=== PATIENT | male | born 1960 | race Caucasian/White ===

== ENCOUNTER 2019-02-19 05:10 | Inpatient (IN) | payer OTHER ==
[~2019-02-19] VITALS: Ht 167.6 cm; Wt 63.8 kg
[2019-02-19] VITALS (14 sets, daily range): BP systolic 97–154; BP diastolic 61–86
[2019-02-19] MEDS ORDERED: METOCLOPRAMIDE INJ 10 MG/2 ML (REGLAN) IVP STA (05:23)
[2019-02-19] MEDS ORDERED: NS IV 1000 ML 1,000 ML IV STA (05:23)
[2019-02-19] MEDS ORDERED: PANTOPRAZOLE 40 MG (PROTONIX) VIAL IV STA (05:23)
--- NOTE | 2019-02-19 05:34 | ED GI ---
General Chief Complaint: Abdominal/GI Problems Stated Complaint: DIABETIC CONCERNS Source of Information: Patient (MONSERRAT SANCHEZ MD) History of Present Illness Date Seen by Provider: Feb 19, 2019 Time Seen by Provider: 05:12 Initial Comments 58 yo M presenting with n/v and epigastric pain that started around 1 am this morning. 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 He was just started on Trulicity by his provider Monday with the first dose in the office. He had been doing well until tonight. He had not had much appetite during the day and did not eat or drink much. On the flight he had a cup of coffee and a bag of pretzels. he denies eating otherwise. He has epigastric pain that he rates at an 8 out of 10 and it builds up until he vomits. He has had about 4 episodes of vomiting since 1 am. The emesis is black to brown colored with coffee ground substance in it as well. He denies any dark or tarry stools. He does have a hx of some reflux but denies taking any medicine for it. (MONSERRAT SANCHEZ MD) Allergies and Home Medications Allergies Coded Allergies: No Known Drug Allergies (Verified , 02/19/19) Home Medications Dulaglutide 1.5 Mg/0.5 Ml Pen.injctr, 1.5 MG SQ Fr, (Reported) Ertugliflozin/Metformin 1 Each Tablet, 1 TAB PO BID, (Reported) Levothyroxine Sodium 50 Mcg Tablet, 50 MCG PO DAILY, (Reported) Lisinopril 10 Mg Tablet, 10 MG PO DAILY, (Reported) Rosuvastatin Calcium 10 Mg Tablet, 10 MG PO DAILY, (Reported) Patient Home Medication List Home Medication List Reviewed: Yes (MONSERRAT SANCHEZ MD) Review of Systems Review of Systems Constitutional: No dizziness, No fever EENTM: No Symptoms Reported Respiratory: No Symptoms Reported Cardiovascular: No Symptoms Reported Gastrointestinal: See HPI, Abdominal Pain (epigastric pain); Denies Diarrhea, Denies Difficulty Swallowing; Nausea (since 1 am), Poor Appetite (today); Denies Rectal Bleeding; Vomiting (since 1 am) Genitourinary: No Symptoms Reported Musculoskeletal: no symptoms reported Skin: no symptoms reported Psychiatric/Neurological: No Symptoms Reported Endocrine: No Symptoms Reported (MONSERRAT SANCHEZ MD) Past Hxqfscd-Jdrmxq-Myezxi Hx Past Med/Social Hx: Reviewed Nursing Past Med/Soc Hx (MONSERRAT SANCHEZ MD) Past Medical History Surgeries: No Respiratory: No Cardiac: No Neurological: No Genitourinary: No Gastrointestinal: Yes Gastroesophageal Reflux Endocrine: Yes Diabetes, Non-Insulin dep (MONSERRAT SANCHEZ MD) Physical Exam Vital Signs Vital Signs - First Documented 02/19/19 05:11 Temp 96.7 Pulse 119 Resp 18 B/P (MAP) 163/80 (107) Pulse Ox 99 O2 Delivery Room Air (MIKE BENITO MD) Vital Signs Capillary Refill : (MONSERRAT SANCHEZ MD) Height/Weight/BMI Height: '" Weight: lbs. oz. kg; BMI Method: General Appearance: WD/WN, mild distress, thin HEENT: PERRL/EOMI, pharynx normal Neck: non-tender, full range of motion, supple, normal inspection Respiratory: chest non-tender, lungs clear, normal breath sounds, no respiratory distress, no accessory muscle use Cardiovascular: normal peripheral pulses, tachycardia Gastrointestinal: normal bowel sounds, soft, no pulsatile mass, guarding (epigastric tenderness), tenderness (epigastric) Rectal: deferred (pt denies dark or tarry stools) Extremities: normal range of motion, non-tender, normal inspection, no pedal edema, no calf tenderness, normal capillary refill 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, no motor/sensory deficits, alert, oriented x 3 Skin: normal color, warm/dry (MONSERRAT SANCHEZ MD) Focused Exam Lactate Level 02/19/19 07:25: Lactic Acid Level 1.84 (MIKE BENITO MD) Lactic Acid Level Laboratory Tests Test 02/19/19 07:25 Lactic Acid Level 1.84 MMOL/L (0.50-2.00) (MIKE BENITO MD) Progress/Results/Core Measures Results/Orders Lab Results Laboratory Tests Test 02/19/19 05:22 02/19/19 05:40 02/19/19 07:17 02/19/19 07:25 Range/Units White Blood Count 14.1 H 4.3-11.0 10^3/uL Red Blood Count 4.57 4.35-5.85 10^6/uL Hemoglobin 13.8 13.3-17.7 G/DL Hematocrit 41 40-54 % Mean Corpuscular Volume 89 80-99 FL Mean Corpuscular Hemoglobin 30 25-34 PG Mean Corpuscular Hemoglobin Concent 34 32-36 G/DL Red Cell Distribution Width 11.8 10.0-14.5 % Platelet Count 277 130-400 10^3/uL Mean Platelet Volume 10.1 7.4-10.4 FL Neutrophils (%) (Auto) 87 H 42-75 % Lymphocytes (%) (Auto) 9 L 12-44 % Monocytes (%) (Auto) 3 0-12 % Eosinophils (%) (Auto) 0 0-10 % Basophils (%) (Auto) 0 0-10 % Neutrophils # (Auto) 12.3 H 1.8-7.8 X 10^3 Lymphocytes # (Auto) 1.2 1.0-4.0 X 10^3 Monocytes # (Auto) 0.4 0.0-1.0 X 10^3 Eosinophils # (Auto) 0.0 0.0-0.3 10^3/uL Basophils # (Auto) 0.1 0.0-0.1 10^3/uL Neutrophils % (Manual) 86 % Lymphocytes % (Manual) 7 % Monocytes % (Manual) 3 % Eosinophils % (Manual) 0 % Basophils % (Manual) 1 % Band Neutrophils 3 % Sodium Level 133 L 135-145 MMOL/L Potassium Level 5.1 H 3.6-5.0 MMOL/L Chloride Level 88 L 98-107 MMOL/L Carbon Dioxide Level 10 L 21-32 MMOL/L Anion Gap 35 H 5-14 MMOL/L Blood Urea Nitrogen 29 H 7-18 MG/DL Creatinine 0.98 0.60-1.30 MG/DL Estimat Glomerular Filtration Rate > 60 BUN/Creatinine Ratio 30 Glucose Level 201 H 70-105 MG/DL Calcium Level 10.1 8.5-10.1 MG/DL Corrected Calcium 9.7 8.5-10.1 MG/DL Total Bilirubin 0.4 0.1-1.0 MG/DL Aspartate Amino Transf (AST/SGOT) 17 5-34 U/L Alanine Aminotransferase (ALT/SGPT) 12 0-55 U/L Alkaline Phosphatase 72 40-136 U/L Total Protein 7.4 6.4-8.2 GM/DL Albumin 4.5 3.2-4.5 GM/DL Lipase 21 8-78 U/L Salicylates Level < 0.3 L 5.0-20.0 MG/DL Acetaminophen Level < 10 L 10-30 UG/ML Serum Alcohol < 10 <10 MG/DL Gastric Fluid Occult Blood POSITIVE H NEGATIVE Urine Color YELLOW Urine Clarity CLEAR Urine pH 5.5 5-9 Urine Specific [place] >=1.030 1.016-1.022 Urine Protein 1+ H NEGATIVE Urine Glucose (UA) 2+ H NEGATIVE Urine Ketones 3+ H NEGATIVE Urine Nitrite NEGATIVE NEGATIVE Urine Bilirubin NEGATIVE NEGATIVE Urine Urobilinogen 0.2 NORMAL MG/DL Urine Leukocyte Esterase NEGATIVE NEGATIVE Urine RBC (Auto) NEGATIVE NEGATIVE Urine RBC 0-2 /HPF Urine WBC RARE /HPF Urine Squamous Epithelial Cells 0-2 /HPF Urine Crystals NONE /LPF Urine Bacteria NEGATIVE /HPF Urine Casts NONE /LPF Urine Mucus NEGATIVE /LPF Urine Culture Indicated NO Lactic Acid Level 1.84 0.50-2.00 MMOL/L Test 02/19/19 07:45 Range/Units Blood Gas Puncture Site LEFT RADIAL Blood Gas Patient Temperature 96.9 Arterial Blood pH 7.17 *L 7.37-7.43 Arterial Blood Partial Pressure CO2 21 L 35-45 MMHG Arterial Blood Partial Pressure O2 99 H 79-93 MMHG Arterial Blood HCO3 8 *L 23-27 MMOL/L Arterial Blood Total CO2 8.3 L 21.0-31.0 MMOL/L Arterial Blood Oxygen Saturation 96 94-100 % Arterial Blood Base Excess -19.0 L -2.5-2.5 MMOL/L Moo Test YES-POS Blood Gas Ventilator Setting NO Blood Gas Inspired Oxygen ROOM AIR (MIKE BENITO MD) My Orders Orders - MIKE BENITO MD Occult Blood,Gastric Fluid (02/19/19 05:40) Iohexol Injection (Omnipaque 350 Mg/Ml 1 (02/19/19 06:30) Received Contrast (Hold Metformin- Contr (02/19/19 06:30) Sodium Chloride Flush (Catheter Flush Sy (02/19/19 06:30) Ns (Ivpb) (Sodium Chloride 0.9% Ivpb Bag (02/19/19 06:30) Ondansetron Injection (Zofran Injectio (02/19/19 06:15) Ondansetron Injection (Zofran Injectio (02/19/19 06:22) Lactic Acid Analyzer (02/19/19 06:43) Alcohol (02/19/19 06:43) Acetaminophen (02/19/19 06:50) Salicylate (02/19/19 06:50) Ns Iv 1000 Ml (Sodium Chloride 0.9%) (02/19/19 07:00) Beta Hydroxybutyrate (02/19/19 07:14) Arterial Blood Gas (02/19/19 07:15) Fentanyl Injection (Sublimaze Injection (02/19/19 07:30) Urinalysis (02/19/19 07:17) Ekg Tracing (02/19/19 07:35) Chest 1 View Ap/Pa Only (02/19/19 07:35) Fentanyl Injection (Sublimaze Injection (02/19/19 08:15) Ns Iv 1000 Ml (Sodium Chloride 0.9%) (02/19/19 08:15) Fomepizole Injection (Antizol Injection) (02/19/19 08:45) (MIKE BENITO MD) Medications Given in ED Current Medications Medications Dose Ordered Sig/Michael Route Start Time Stop Time Status Last Admin Dose Admin Fentanyl Citrate 25 mcg ONCE ONCE IVP 02/19/19 07:30 02/19/19 07:31 DC 02/19/19 07:29 25 MCG Fentanyl Citrate 50 mcg ONCE ONCE IVP 02/19/19 08:15 02/19/19 08:16 DC 02/19/19 08:17 50 MCG Iohexol 50 ml ONCE ONCE IV 02/19/19 06:30 02/19/19 06:31 DC 02/19/19 06:50 100 ML Ondansetron HCl 4 mg ONCE ONCE IVP 02/19/19 06:15 02/19/19 06:28 DC 02/19/19 06:26 4 MG Sodium Chloride 10 ml NEEDED PRN IV 02/19/19 06:30 02/19/19 06:51 10 ML Sodium Chloride 100 ml ONCE ONCE IV 02/19/19 06:30 02/19/19 06:31 DC 02/19/19 06:51 100 ML (MIKE BENITO MD) Vital Signs/I&O 02/19/19 02/19/19 05:11 07:10 Temp 96.7 Pulse 119 122 125 124 Resp 18 B/P (MAP) 163/80 (107) 154/70 (98) 151/75 (100) 149/84 (105) Pulse Ox 99 O2 Delivery Room Air (MIKE BENITO MD) Progress Progress Note : Progress Note Obtain labs and gastroccult the emesis that is dark colored and appears to have coffee grounds in it. Give IVF for hydration and his tachycardia. Check Orthostatic vital signs. Give Protonix for possible gastritis vs PUD and for his epigastric pain. Give Reglan to try and help with his nausea and epigastric pain. 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 With his labs will check for pancreatitis as well as basic electrolytes, LFTs and blood count with UA. Will obtain a CT scan of his abdomen/pelvis as well to evaluate his epigastric pain and n/v. This may all be due to his new medicine the Trulicity but it could be gastritis or peptic ulcer disease or pancreatitis or cholecystitis or colitis. (MONSERRAT SANCHEZ MD) Progress Note : Time: 06:31 Progress Note 02-19 06:30 Dr. Benito all above appreciated 58 yo male started feeling bad yest afternoon, then epigastric pain and coffee ground emesis ~01:00, had 5 episodes, no syncope, no dark stools initially pt said he had no definite GI hx or prior such episodes, but later describes episode 4 yrs ago, sounds like upper endo showed esophagitis then, no Rx Hb 13.8 WBC 14,000 gastroccult +, pt still tachycardic, nearing completion of 1 liter NS IV, will check orthostats, remainder of labs and CT pending UGI bleed, possibly PUD seems most likely chemistries CO2 only 10 anion gap 35 high anion gap acidosis pt denies recent etoh or any kind of toxic ingestion labs added etoh, lactate, serum ketones, ASA and tylenol levels will continue aggressive IV fluids BUN 29 creat 0.[address] ahead with CT CT reveals marked thickening of distal esophagus, neoplasm vs severe esophagitis abd normal lactate normal etoh ASA and tylenol 0 pt has persistent tachycardia though no orthostatic changes ABG pH 7.17 serum ketones sent out EKG sinus tach no acute change CXR appears normal so.......... esophagitis with hematemesis and high anion gap metabolic a cidosis (possibly trulicity related?)) discussed with hospitalist at [place] who accepts pt in transfer full admit inpatient ICU Dr. Doyle inquires re: fomepizole it is available here, initial 1gram (15mg/kg) IV dose ordered (MIKE BENITO MD) Initial ECG Impression Date: Feb 19, 2019 Initial ECG Impression Time: 08:19 Initial ECG Rhythm: S.Tach Initial ECG Impression: Normal (MIKE BENITO MD) Diagnostic Imaging Diagonstic Imaging: CT Plain Films/CT/US/NM/MRI: abdomen, pelvis (MONSERRAT SANCHEZ MD) Transfer of Care Time: 06:00 Care transferred to: Dr. Benito for review of results and further eval of pt, final disposition (MONSERRAT SANCHEZ MD) Departure Impression Primary Impression: Metabolic acidosis, increased anion gap Additional Impressions: Esophagitis Hematemesis Qualified Codes: K92.0 - Hematemesis Disposition: 09 ADMITTED INPATIENT Condition: Stable Admissions Decision to Admit Reason: Admit from ER (General) Decision to Admit/Date: Feb 19, 2019 Time/Decision to Admit Time: 08:23 (MIKE BENITO MD) Transfer Time Spoke to Accepting Phy: 08:24 Transfer Progress Notes pt stable tachycardic but BP's good no further vomiting getting aggressive IV fluids for acidosis Transfer Facility: [place] [facility] ICU Method of Transfer: EMS (MIKE BENITO MD) Departure-Patient Inst. Referrals: NO,LOCAL PHYSICIAN (PCP) Primary Care Physician MONSERRAT SANCHEZ MD Feb 19, 2019 05:34 MIKE BENITO MD Feb 19, 2019 06:37
[2019-02-19 06:03] LABS: HEMATOCRIT 41 % (40-54); HEMOGLOBIN 13.8 G/DL (13.3-17.7); MEAN CORPUSCULAR HEMOGLOBIN 30 PG (25-34); WHITE BLOOD COUNT 14.1 10^3/uL (4.3-11.0)
[2019-02-19 06:04] LABS: MEAN CORPUSCULAR HGB CONC 34 G/DL (32-36); MEAN CORPUSCULAR VOLUME 89 FL (80-99); MEAN PLATELET VOLUME 10.1 FL (7.4-10.4); NEUTROPHILS % (AUTO) 87 % (42-75); PLATELET COUNT 277 10^3/uL (130-400); RED CELL DISTRIBUTION WIDTH 11.8 % (10.0-14.5)
[2019-02-19 06:05] LABS: BASOPHILS # (AUTO) 0.1 10^3/uL (0.0-0.1); BASOPHILS % (AUTO) 0 % (0-10); EOSINOPHILS % (AUTO) 0 % (0-10); LYMPHOCYTES # (AUTO) 1.2 X 10^3 (1.0-4.0); LYMPHOCYTES % (AUTO) 9 % (12-44); MONOCYTES # (AUTO) 0.4 X 10^3 (0.0-1.0); MONOCYTES % (AUTO) 3 % (0-12); NEUTROPHILS # (AUTO) 12.3 X 10^3 (1.8-7.8)
[2019-02-19] MEDS ORDERED: ONDANSETRON 4 MG/2 ML (SDV) Z0FRAN IVP ONE (06:15)
[2019-02-19 06:19] LABS: CHLORIDE 88 MMOL/L (98-107); POTASSIUM 5.1 MMOL/L (3.6-5.0); SODIUM 133 MMOL/L (135-145)
[2019-02-19 06:20] LABS: ALANINE AMINOTRANSFERASE 12 U/L (0-55); ALBUMIN 4.5 GM/DL (3.2-4.5); ALKALINE PHOSPHATASE 72 U/L (40-136); BILIRUBIN,TOTAL 0.4 MG/DL (0.1-1.0); BUN/CREATININE RATIO 30; CALCIUM 10.1 MG/DL (8.5-10.1); CARBON DIOXIDE 10 MMOL/L (21-32); CREATININE SERUM 0.98 MG/DL (0.60-1.30); GFR ESTIMATED > 60; GLUCOSE 201 MG/DL (70-105); TOTAL PROTEIN 7.4 GM/DL (6.4-8.2)
[2019-02-19 06:21] LABS: LIPASE 21 U/L (8-78)
[2019-02-19] MEDS ORDERED: ONDANSETRON 4 MG/2 ML (SDV) Z0FRAN ONE (06:22)
[2019-02-19] MEDS ORDERED: HOLD METFORMIN - RECEIVED CONTRAST 20 ML VIAL IV SCH (06:30)
[2019-02-19] MEDS ORDERED: NS 100 ML (IVPB) BAG IV ONE (06:30)
[2019-02-19] MEDS ORDERED: IOHEXOL 350 MG/ML 100 ML (OMNIPAQUE 350) VIAL IV ONE (06:30)
[2019-02-19] MEDS ORDERED: CATHETER FLUSH 10 ML SYR IV PRN (06:30)
[2019-02-19 06:32] LABS: BAND NEUTROPHILS 3 %; BASOPHILS % (MANUAL) 1 %; EOSINOPHILS % (MANUAL) 0 %; LYMPHOCYTES % (MANUAL) 7 %; MONOCYTES % (MANUAL) 3 %; NEUTROPHILS % (MANUAL) 86 %
[2019-02-19 07:00] LABS: OCCULT BLOOD,GASTRIC FLUID POSITIVE (NEGATIVE)
[2019-02-19] MEDS ORDERED: NS IV 1000 ML 1,000 ML IV SCH ×3 (07:00→11:27)
--- NOTE | 2019-02-19 07:01 | NUR ---
REPORT GIVEN TO DAYLIN FARAH
[2019-02-19] MEDS ORDERED: fentaNYL INJECTION 100 MCG/2 ML AMP IVP PRN (07:15)
[2019-02-19 07:19] LABS: ACETAMINOPHEN < 10 UG/ML (10-30); SALICYLATE < 0.3 MG/DL (5.0-20.0)
--- NOTE | 2019-02-19 07:24 | Diagnostic Imaging Report ---
PROCEDURE: CT abdomen and pelvis with contrast. TECHNIQUE: Multiple contiguous axial images were obtained through the abdomen and pelvis after administration of intravenous contrast. Auto Exposure Controls were utilized during the CT exam to meet ALARA standards for radiation dose reduction. INDICATION: Nausea, vomiting, and abdominal pain. FINDINGS: No comparison available. There is significant thickening of the distal esophagus, incompletely evaluated. Differential is a neoplasm versus severe esophagitis. There is some focal fat at the falciform ligament. No suspicious liver lesions. Gallbladder is normal. No biliary ductal dilation. Portal vein is patent. Pancreas, spleen and adrenal glands are normal. Kidneys enhance symmetrically without focal lesion. No hydronephrosis. Urinary bladder is significantly distended. Prostate is normal. No dilated loops of large or small bowel. No bowel obstruction or inflammation. The appendix is normal. There is no abdominal or pelvic lymphadenopathy. No free fluid or air. Abdominal aorta is normal in caliber. There are no suspicious osseous lesions. IMPRESSION: 1. Severe thickening of the distal esophagus. The differential is neoplasm or severe esophagitis. 2. No acute intraabdominal abnormality. Dictated by: Dictated on workstation # [id number]
[2019-02-19] MEDS ORDERED: fentaNYL INJECTION 100 MCG/2 ML AMP IVP ONE ×2 (07:30→08:15)
[2019-02-19 07:40] LABS: CLARITY,URINE CLEAR; COLOR,URINE YELLOW; GLUCOSE, URINE (UA) 2+ (NEGATIVE); KETONES,URINE 3+ (NEGATIVE); PH,URINE 5.5 (5-9); PROTEIN,URINE 1+ (NEGATIVE)
[2019-02-19 07:41] LABS: BACTERIA,URINE NEGATIVE /HPF; BILIRUBIN,URINE NEGATIVE (NEGATIVE); LEUKOCYTE ESTERASE ,URINE NEGATIVE (NEGATIVE); NITRITE,URINE NEGATIVE (NEGATIVE); RBC,URINE 0-2 /HPF; SQUAMOUS EPITHELIAL CELL,UR 0-2 /HPF; UROBILINOGEN,URINE 0.2 MG/DL (NORMAL); WBC,URINE RARE /HPF
[2019-02-19 07:56] LABS: ABG PCO2 21 MMHG (35-45); ABG PO2 99 MMHG (79-93)
[2019-02-19 07:57] LABS: ABG OXYGEN SATURATION 96 % (94-100); ALLENS TEST YES-POS; INSPIRED O2 ROOM AIR; PATIENT TEMP 96.9; VENTILATOR NO
[2019-02-19 07:58] LABS: ABG TCO2 8.3 MMOL/L (21.0-31.0)
[2019-02-19 08:02] LABS: ABG PH 7.17 (7.37-7.43)
--- NOTE | 2019-02-19 08:31 | Diagnostic Imaging Report ---
INDICATION: Nausea, vomiting, and pain COMPARISON: None available. TECHNIQUE: Single radiograph of the chest dated 02/19/2019 FINDINGS: The cardiac silhouette and pulmonary vasculature are within normal limits. The lungs are clear. No pleural effusion. No pneumothorax. No acute osseous abnormality. IMPRESSION: No acute cardiopulmonary abnormality. Dictated by: Dictated on workstation # [id number]
[2019-02-19] MEDS ORDERED: NS IV ONE (08:45)
[2019-02-19] MEDS ORDERED: FOMEPIZOLE IV ONE (08:45)
[2019-02-19] MEDS ORDERED: NS IV 1000 ML 1,000 ML IV ONE (09:05)
[2019-02-19] MEDS ORDERED: PROMETHAZINE INJ 25 MG/ML (PHENERGAN) AMP ONE (09:14)
[2019-02-19] MEDS ORDERED: PROMETHAZINE INJ 25 MG/ML (PHENERGAN) AMP IM ONE (09:30)
[2019-02-19] MEDS ORDERED: LEVO50TA6 PO (10:50)
[2019-02-19] MEDS ORDERED: ROSU10TA28 PO (10:50)
[2019-02-19] MEDS ORDERED: LISI10TA2 PO (10:50)
[2019-02-19 11:15] LABS: BASOPHILS % (AUTO) 0 % (0-10); EOSINOPHILS % (AUTO) 0 % (0-10); HEMATOCRIT 39 % (40-54); HEMOGLOBIN 13.3 G/DL (13.3-17.7); LYMPHOCYTES % (AUTO) 5 % (12-44); MEAN CORPUSCULAR HEMOGLOBIN 30 PG (25-34); MEAN CORPUSCULAR HGB CONC 34 G/DL (32-36); MEAN CORPUSCULAR VOLUME 88 FL (80-99); MEAN PLATELET VOLUME 9.9 FL (7.4-10.4); MONOCYTES # (AUTO) 0.7 X 10^3 (0.0-1.0); MONOCYTES % (AUTO) 4 % (0-12); NEUTROPHILS # (AUTO) 16.4 X 10^3 (1.8-7.8); NEUTROPHILS % (AUTO) 91 % (42-75); PLATELET COUNT 275 10^3/uL (130-400); RED CELL DISTRIBUTION WIDTH 12.2 % (10.0-14.5); WHITE BLOOD COUNT 18.1 10^3/uL (4.3-11.0)
[2019-02-19] MEDS ORDERED: PANTOPRAZOLE 40 MG (PROTONIX) VIAL IV ONE (11:15)
[2019-02-19] MEDS ORDERED: ERTU1TAB11 PO (11:19)
[2019-02-19] MEDS ORDERED: DULA0.75 SQ (11:20)
--- NOTE | 2019-02-19 11:20 | History & Physical-Hospitalist ---
History of Present Illness HPI/Chief Complaint Pt is a 58yoCM with a PMH of NIDDMII and HTN who presented to the ER with a CC of abdominal pain, nausea, and vomiting. He states his symptoms started yesterday. He flew from [place] to [place] to get a truck and on the way back he developed vomiting. His PCP told him to expect that from his Trulicity and had given him Zofran which he took and that helped. Shortly afterwards though his nausea returned and he has vomited multiple times since then causing him to seek evaluation in the ER. His vomit had a dark coffee ground appearance. He was found to have as severe metabolic acidosis on evaluation with high anion gap and admitted for further evaluation. He reported he also takes Segluromet for his diabetes but not insulin. He denies any ingestion of toxic alcohol or any unknown substances. Source: patient Exam Limitations: no limitations Date Seen 02/19/19 Time Seen by a Provider: 11:11 Attending Physician Tessa Doyle MD PCP No,Local Physician Referring Physician Date of Admission Feb 19, 2019 at 8:48 am Home Medications & Allergies Home Medications Reviewed patient Home Medication Reconciliation performed by pharmacy medication reconciliations pool technician and/or nursing. Patients Allergies have been reviewed. Allergies Allergies Coded Allergies No Known Drug Allergies (Verified02/19/19) Past Ezgqobw-Vwsrkz-Qtzcwp Hx Past Med/Social Hx: Reviewed Nursing Past Med/Soc Hx Patient Social History Marrital Status: Employed/Student: employed Alcohol Use: Occasionally Uses Alcohol Beverage of Choice: Beer Recreational Drug Use: No Smoking Status: Never a Smoker Recent Foreign Travel: No Contact w/other who traveled: No Recent Hopitalizations: No Recent Infectious Disease Expo: No Immunizations Up To Date Tetanus Booster (TDap): Less than 5yrs Pediatric: Yes Seasonal Allergies Seasonal Allergies: No Past Medical History Cardiac: High Cholesterol, Hypertension Gastrointestinal: Gastroesophageal Reflux, Esophagitis Endocrine: Diabetes, Non-Insulin dep Are Your Blood Sugars Over 250: No History of Blood Disorders: No Family History Reviewed Nursing Family Hx Patient reports no known family medical history. Heart Disease Review of Systems Constitutional: No chills, No diaphoresis, No fever, No malaise EENTM: no symptoms reported Respiratory: no symptoms reported Cardiovascular: no symptoms reported Gastrointestinal: abdominal pain; No constipation, No diarrhea; hematemesis, heartburn; No melena; nausea, vomiting Genitourinary: No dysuria, No frequency Skin: no symptoms reported Psychiatric/Neurological: No Symptoms Reported Physical Exam Physical Exam Vital Signs Vital Signs - First Documented 02/19/19 05:11 Temp 96.7 Pulse 119 Resp 18 B/P (MAP) 163/80 (107) Pulse Ox 99 O2 Delivery Room Air Capillary Refill : Less Than 3 Seconds Height, Weight, BMI Height: 5'6.00" Weight: 134lbs. oz. 60.491623sm; BMI Method:Stated General Appearance: No Apparent Distress, WD/WN HEENT: Moist Mucous Membranes; No Scleral Icterus (L), No Scleral Icterus (R) Neck: Normal Inspection, Supple; No JVD, No Thyromegaly Respiratory: Lungs Clear, No Accessory Muscle Use, No Respiratory Distress Cardiovascular: No JVD, No Murmur, Irregularly Irregular Gastrointestinal: Normal Bowel Sounds, Non Tender, Soft Extremity: Normal Capillary Refill, Non Tender, No Calf Tenderness Neurologic/Psychiatric: Alert, Oriented x3, Normal Mood/Affect; No Aphasia, No Facial Droop Skin: Normal Color, Warm/Dry Results Results/Procedures Labs Laboratory Tests 02/19/19 05:22 02/19/19 09:20 02/19/19 10:29 02/19/19 13:40 02/19/19 20:35 02/20/19 03:15 Patient resulted labs reviewed. Imaging: Reviewed Imaging Report Assessment/Plan Admission Diagnosis Euglycemic DKA Admission Status: Inpatient Order (span 2 midnights) Reason for Inpatient Admission: ICU admission, work up for HAGMA Assessment and Plan HAGMA Likely euglycemic DKA due to ertuglifozin Toxic alcohol work up pending due to gap of 35 Received Fomepizole in ER If labs not improved with insulin will continue Pulm/CC consulted, appreciate recs NIDDMII A1c Hold home meds Continue insulin gtt as above HTN Well controlled trend Abd pain UGI Bleed Esophagitis Surgery consulted, plan for EGD today Hgb stable NPO SCDs- hold lovenox for hematemesis IVF: per protocol Diagnosis/Problems Diagnosis/Problems (1) Diabetic ketoacidosis without coma associated with type 2 diabetes mellitus Status: Acute (2) Metabolic acidosis, increased anion gap Status: Acute (3) Esophagitis Status: Acute (4) Hematemesis Status: Acute Qualifiers: Nausea presence: with nausea Qualified Codes: K92.0 - Hematemesis (5) Nausea and vomiting Status: Acute Qualifiers: Vomiting type: unspecified Vomiting Intractability: non-intractable Qualified Codes: R11.2 - Nausea with vomiting, unspecified Clinical Quality Measures DVT/VTE Risk/Contraindication: Risk Factor Score Per Nursin RFS Level Per Nursing on Admit: 2=Moderate TESSA DOYLE MD Feb 19, 2019 11:20
[2019-02-19] MEDS ORDERED: DULA1.5P2 SQ (11:21)
[2019-02-19 11:25] LABS: CALCIUM 10.1 MG/DL (8.5-10.1); CREATININE SERUM 1.37 MG/DL (0.60-1.30); POTASSIUM 5.1 MMOL/L (3.6-5.0)
[2019-02-19] MEDS ORDERED: inSUlin REGULAR TPN/DRIP ONLY 250 UNITS in NORMAL SALINE 250 ML IV SCH (11:30)
[2019-02-19 12:06] LABS: EOSINOPHILS % (MANUAL) 1 %; LYMPHOCYTES % (MANUAL) 10 %; MONOCYTES % (MANUAL) 3 %; NEUTROPHILS % (MANUAL) 86 %; RBC MORPH NORMAL
[2019-02-19] MEDS: NS IV 1000 ML 1,000 ML IV SCH ×4 (12:25→21:50)
[2019-02-19] MEDS: D5 1/2 NS 1000 ML IV SOLUTION 1,000 ML IV SCH ×3 (12:26→20:16)
[2019-02-19] MEDS: POTASSIUM CL 10MEQ/50ML IVPB 50 ML IV SCH ×7 (12:26→22:27)
[2019-02-19] MEDS: 1/2 NS IV SOLUTION 1,000 ML IV SCH ×4 (12:27→23:45)
[2019-02-19 12:40] LABS: ABG BASE EXCESS -19.8 MMOL/L (-2.5-2.5); ABG OXYGEN SATURATION 98 % (94-100); ABG PCO2 20 MMHG (35-45); ABG PO2 105 MMHG (79-93); ABG TCO2 7.8 MMOL/L (21.0-31.0)
[2019-02-19 12:42] LABS: ABG PH 7.18 (7.37-7.43)
[2019-02-19 12:43] LABS: ALLENS TEST YES-POS; INSPIRED O2 ROOM AIR; PATIENT TEMP 98.1; VENTILATOR NO
--- NOTE | 2019-02-19 13:23 | Consultation - Surgery ---
History of Present Illness History of Present Illness Patient Consulted On(rashaad/time) 02/19/19 13:18 Time Seen by Provider: 12:51 History of Present Illness Surgery asked to consult regarding abdominal pain, N/V, coffee ground emesis and thickened Esophagus seen on CT. HPI per ED: 58 yo M presenting with n/v and epigastric pain that started around 1 am this morning. 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 He was just started on Trulicity by his provider Monday with the first dose in the office. He had been doing well until tonight. He had not had much appetite during the day and did not eat or drink much. On the flight he had a cup of coffee and a bag of pretzels. he denies eating otherwise. He has epigastric pain that he rates at an 8 out of 10 and it builds up until he vomits. He has had about 4 episodes of vomiting since 1 am. The emesis is black to brown colored with coffee ground substance in it as well. He denies any dark or tarry stools. He does have a hx of some reflux but denies taking any medicine for it. When I spoke to pt today he states he has never had pain this bad before, nor has he had this bad of N/V. He reports he had a EGD about four years ago for "acid reflux, but they didn't find much". He has never vomited up blood before. Allergies and Home Medications Allergies Coded Allergies: No Known Drug Allergies (Unverified , 02/19/19) Home Medications Dulaglutide 1.5 Mg/0.5 Ml Pen.injctr, 1.5 MG SQ Fr, (Reported) Ertugliflozin/Metformin 1 Each Tablet, 1 TAB PO BID, (Reported) Levothyroxine Sodium 50 Mcg Tablet, 50 MCG PO DAILY, (Reported) Lisinopril 10 Mg Tablet, 10 MG PO DAILY, (Reported) Rosuvastatin Calcium 10 Mg Tablet, 10 MG PO DAILY, (Reported) Patient Home Medication List Home Medication List Reviewed: Yes Past Zxkafkr-Rysnqk-Nxrmnj Hx Patient Social History Alcohol Use: Occasionally Uses Recreational Drug Use: No Smoking Status: Never a Smoker Recent Foreign Travel: No Contact w/Someone Who Travel: No Recent Infectious Disease Expo: No Recent Hopitalizations: No Immunizations Up To Date Tetanus Booster (TDap): Less than 5yrs PED Vaccines UTD: Yes Seasonal Allergies Seasonal Allergies: No Surgeries History of Surgeries: No Respiratory History of Respiratory Disorde: No Cardiovascular History of Cardiac Disorders: No Cardiac Disorders: High Cholesterol, Hypertension Neurological History of Neurological Disord: No Genitourinary History of Genitourinary Disor: No Gastrointestinal History of Gastrointestinal Di: Yes Gastrointestinal Disorders: Gastroesophageal Reflux Musculoskeletal History of Musculoskeletal Dis: No Endocrine History of Endocrine Disorders: Yes Endocrine Disorders: Diabetes, Non-Insulin dep HEENT History of HEENT Disorders: No Cancer History of Cancer: No Psychosocial History of Psychiatric Problem: No Integumentary History of Skin or Integumenta: No Blood Transfusions History of Blood Disorders: No Family Medical History Significant Family History: CAD Under 55 Years Old (Father), Diabetes (grandmother) Family Medial History: Patient reports no known family medical history. Review of Systems-General Constitutional: dizziness, malaise, weakness EENTM: No blurred vision, No double vision, No mouth pain, No mouth swelling, No epistaxis, No throat swelling Respiratory: No hemoptysis, No short of breath Cardiovascular: No chest pain, No edema, No palpitations Gastrointestinal: abdominal pain, hematemesis; No jaundice, No melena; nausea, vomiting Genitourinary: No dysuria, No frequency, No hematuria Musculoskeletal: No joint pain, No joint swelling, No muscle pain, No muscle stiffness Skin: No change in color, No change in hair/nails Psychiatric/Neurological: Denies Anxiety, Denies Depressed, Denies Seizure, Denies Tremors Other Pt denies any hx of abnormal bleeding or bruising Physical Exam-General Problems Physical Exam Vital Signs Vital Signs - First Documented 02/19/19 05:11 Temp 96.7 Pulse 119 Resp 18 B/P (MAP) 163/80 (107) Pulse Ox 99 O2 Delivery Room Air Capillary Refill : Less Than 3 Seconds General Appearance: WD/WN, mild distress Eyes: Bilateral Eye PERRL, Bilateral Eye EOMI HEENT: pharynx normal; No scleral icterus (R), No scleral icterus (L) Neck: non-tender, full range of motion, supple Respiratory: chest non-tender, lungs clear, normal breath sounds, no respiratory distress, no accessory muscle use Cardiovascular: regular rate, rhythm, no edema, no murmur Gastrointestinal: normal bowel sounds, soft, no organomegaly, no pulsatile mass, tenderness (epigastric/sub-xiphoid), hernia (umbilical incarcerated) Back: no CVA tenderness, no vertebral tenderness Extremities: normal range of motion, non-tender, normal inspection, no pedal edema, no calf tenderness Neurologic/Psychiatric: card reader II-XII nml as tested, no motor/sensory deficits, al ert, normal mood/affect, oriented x 3 Skin: normal color, cyanosis Lymphatic: no adenopathy (neck, axilla or groin) Data Review Labs Laboratory Tests 02/19/19 05:22: White Blood Count 14.1H, Red Blood Count 4.57, Hemoglobin 13.8, Hematocrit 41, Mean Corpuscular Volume 89, Mean Corpuscular Hemoglobin 30, Mean Corpuscular Hemoglobin Concent 34, Red Cell Distribution Width 11.8, Platelet Count 277, Mean Platelet Volume 10.1, Neutrophils (%) (Auto) 87H, Lymphocytes (%) (Auto) 9L , Monocytes (%) (Auto) 3, Eosinophils (%) (Auto) 0, Basophils (%) (Auto) 0, Neutrophils # (Auto) 12.3H, Lymphocytes # (Auto) 1.2, Monocytes # (Auto) 0.4, Eosinophils # (Auto) 0.0, Basophils # (Auto) 0.1, Neutrophils % (Manual) 86, Lymphocytes % (Manual) 7, Monocytes % (Manual) 3, Eosinophils % (Manual) 0, Basophils % (Manual) 1, Band Neutrophils 3, Sodium Level 133L, Potassium Level 5.1H, Chloride Level 88L, Carbon Dioxide Level 10L, Anion Gap 35H, Blood Urea Nitrogen 29H, Creatinine 0.98, Estimat Glomerular Filtration Rate > 60, BUN/Creatinine Ratio 30, Glucose Level 201H, Calcium Level 10.1, Corrected Calcium 9.7, Total Bilirubin 0.4, Aspartate Amino Transf (AST/SGOT) 17, Alanine Aminotransferase (ALT/SGPT) 12, Alkaline Phosphatase 72, Total Protein 7.4, Albumin 4.5, Lipase 21, Beta-Hydroxybutyrate (Chem panel) 10.84H, Salicylates Level < 0.3L, Acetaminophen Level < 10L, Serum Alcohol < 10 02/19/19 05:40: Gastric Fluid Occult Blood POSITIVEH 02/19/19 07:17: Urine Color YELLOW, Urine Clarity CLEAR, Urine pH 5.5, Urine Specific [place] >=1.030, Urine Protein 1+H, Urine Glucose (UA) 2+H, Urine Ketones 3+H, Urine Nitrite NEGATIVE, Urine Bilirubin NEGATIVE, Urine Urobilinogen 0.2, Urine Leukocyte Esterase NEGATIVE, Urine RBC (Auto) NEGATIVE, Urine RBC 0-2, Urine WBC RARE, Urine Squamous Epithelial Cells 0-2, Urine Crystals NONE, Urine Bacteria NEGATIVE, Urine Casts NONE, Urine Mucus NEGATIVE, Urine Culture Indicated NO 02/19/19 07:25: Lactic Acid Level 1.84 02/19/19 07:45: Blood Gas Puncture Site LEFT RADIAL, Blood Gas Patient Temperature 96.9, Arterial Blood pH 7.17*L, Arterial Blood Partial Pressure CO2 21L, Arterial Blood Partial Pressure O2 99H, Arterial Blood HCO3 8*L, Arterial Blood Total CO2 8.3L, Arterial Blood Oxygen Saturation 96, Arterial Blood Base Excess -19.0L, Moo Test YES-POS, Blood Gas Ventilator Setting NO, Blood Gas Inspired Oxygen ROOM AIR 02/19/19 09:20: Sodium Level 135, Potassium Level 5.1H, Chloride Level 98, Carbon Dioxide Level 7*L, Anion Gap 30H, Blood Urea Nitrogen 28H, Creatinine 1.37H, Estimat Glomerular Filtration Rate 53, BUN/Creatinine Ratio 20, Glucose Level 183H, Calcium Level 10.1 02/19/19 10:23: 02/19/19 10:29: White Blood Count 18.1H, Red Blood Count 4.43, Hemoglobin 13.3, Hematocrit 39L, Mean Corpuscular Volume 88, Mean Corpuscular Hemoglobin 30, Mean Corpuscular Hemoglobin Concent 34, Red Cell Distribution Width 12.2, Platelet Count 275, Mean Platelet Volume 9.9, Neutrophils (%) (Auto) 91H, Lymphocytes (%) (Auto) 5L, Monocytes (%) (Auto) 4, Eosinophils (%) (Auto) 0, Basophils (%) (Auto) 0, Neutrophils # (Auto) 16.4H, Lymphocytes # (Auto) 1.0, Monocytes # (Auto) 0.7, Eosinophils # (Auto) 0.0, Basophils # (Auto) 0.0, Neutrophils % (Manual) 86, Lymphocytes % (Manual) 10, Monocytes % (Manual) 3, Eosinophils % (Manual) 1, Blood Morphology Comment NORMAL 02/19/19 11:41: Glucometer 164H 02/19/19 12:34: Blood Gas Puncture Site LT RADIAL, Blood Gas Patient Temperature 98.1, Arterial Blood pH 7.18*L, Arterial Blood Partial Pressure CO2 20L, Arterial Blood Partial Pressure O2 105H, Arterial Blood HCO3 7*L, Arterial Blood Total CO2 7.8L, Arterial Blood Oxygen Saturation 98, Arterial Blood Base Excess -19.8L, Moo Test YES-POS, Blood Gas Ventilator Setting NO, Blood Gas Inspired Oxygen ROOM AIR 02/19/19 13:06: Glucometer 186H Assessment/Plan Assessment/Plan Assessment/Plan Abdominal Pain N/V with Coffee Ground Emesis Esophagitis - read by Radiologist on CT Metabolic Acidosis with High anion Gap DM II - not controlled Plan is NPO, IV fluids, anti-emetics, pain control and he is currently receiving treatment for the acidosis. He needs an EGD to work-up the esophageal thickening; will do that today up in his room in the ICU. Will get consent, discussed the procedure with pt; risks and complications discussed ( not limited to pain, bleeding, infection and even esophageal perforation). All questions answered to his satisfaction. Clinical Quality Measures DVT/VTE Risk/Contraindication: Risk Factor Score Per Nursin RFS Level Per Nursing on Admit: 2=Moderate PATI GE DO Feb 19, 2019 13:23
[2019-02-19] MEDS: ONDANSETRON 4 MG/2 ML (SDV) Z0FRAN IV PRN ×2 (13:24→17:37)
--- NOTE | 2019-02-19 13:35 | Pulmonary Consultation ---
History of Present Illness History of Present Illness Date of Consultation 02/19/19 13:30 Time Seen by Provider: 13:30 Date of Admission History of Present Illness 58yo with hx of DM and just started Trulicity on Monday presented to ED secondary to N/V and epigastric 8/10 pain that started around 1am. Pt has had decreased appetite. While in the ED pt was found to have severe metabolic a cidosis. He was admitted to ICU for close monitoring. No prior episodes like this in the past. I am consulted for ICU management. Allergies and Home Medications Allergies Coded Allergies: No Known Drug Allergies (Verified , 02/19/19) Home Medications Insulin Determir 1,000 Units/10 Ml Soln, 5 UNIT SQ DAILY@0900 Prescribed by: TESSA ORTEGA on 02/21/19 1426 Levothyroxine Sodium 50 Mcg Tablet, 50 MCG PO DAILY, (Reported) Lisinopril 10 Mg Tablet, 10 MG PO DAILY, (Reported) Ondansetron 4 Mg Tab.rapdis, 4 MG PO Q8H Prescribed by: TESSA ORTEGA on 02/21/19 1428 Pantoprazole Sodium 40 Mg Tablet.dr, 40 MG PO DAILY Prescribed by: TESSA ORTEGA on 02/21/19 1426 Rosuvastatin Calcium 10 Mg Tablet, 10 MG PO DAILY, (Reported) Sucralfate 1 Gm Tablet, 1 GM PO ACHS Prescribed by: TESSA ORTEGA on 02/21/19 1425 Past Eqirkps-Xedanl-Udmecs Hx Past Med/Social Hx: Reviewed Nursing Past Med/Soc Hx Patient Social History Alcohol Use: Occasionally Uses Alcohol Beverage of Choice: Beer Recreational Drug Use: No Smoking Status: Never a Smoker Recent Foreign Travel: No Contact w/Someone Who Travel: No Recent Infectious Disease Expo: No Recent Hopitalizations: No Physical Abuse: No Sexual Abuse: No Mistreated: No Fear: No Immunizations Up To Date Tetanus Booster (TDap): Less than 5yrs PED Vaccines UTD: Yes Seasonal Allergies Seasonal Allergies: No Past Medical History Surgeries: No Respiratory: No Cardiac: No High Cholesterol, Hypertension Neurological: No Genitourinary: No Gastrointestinal: Yes Gastroesophageal Reflux Musculoskeletal: No Endocrine: Yes Diabetes, Non-Insulin dep Are Your Blood Sugars Over 250: No HEENT: No Cancer: No Psychosocial: No Integumentary: No Blood Disorders: No Family Medical History Patient reports no known family medical history. Review of Systems Time Seen by Provider: 13:37 Sepsis Event Evaluation Height, Weight, BMI Height: 5'6.00" Weight: 134lbs. oz. 60.955714wg; BMI Method:Stated Exam Exam Vital Signs Date Time Temp Pulse Resp B/P (MAP) Pulse Ox O2 Delivery O2 Flow Rate FiO2 02/19/19 12:00 Room Air 02/19/19 12:00 120 12 107/63 (78) 99 Room Air 02/19/19 11:00 128 18 122/72 (89) 100 Room Air 02/19/19 10:37 Room Air 02/19/19 10:30 122 17 141/76 (97) 98 Room Air 02/19/19 10:19 128 02/19/19 09:31 97.9 122 18 140/63 (88) 96 Room Air 02/19/19 07:10 122 154/70 (98) 125 151/75 (100) 124 149/84 (105) 02/19/19 05:11 96.7 119 18 163/80 (107) 99 Room Air Height & Weight Height: 5'6.00" Weight: 134lbs. oz. 60.938530yo; BMI Method:Stated General Appearance: Anxious, Chronically ill, Mild Distress HEENT: PERRL/EOMI, Pharynx Normal Neck: Full Range of Motion, Non Tender, Supple Respiratory: No Accessory Muscle Use, No Respiratory Distress, Crackles, Decreased Breath Sounds Cardiovascular: Regular Rate, Rhythm, No Edema Capillary Refill: Less Than 3 Seconds Gastrointestinal: normal bowel sounds, soft, no pulsatile mass, guarding ( epigastric tenderness), tenderness (epigastric) Extremity: Normal Capillary Refill, Normal Inspection, No Pedal Edema Neurologic/Psychiatric: Alert Skin: Normal Color, Warm/Dry Lymphatic: No Adenopathy Results Lab Laboratory Tests 02/19/19 05:22 02/19/19 09:20 02/19/19 10:29 Assessment/Plan Assessment/Plan Severe anion gap metabolic acidosis with ketosis -Continue insulin gtt -Continue DKA protocol -IVF Hyperkalemia -Continue insulin gtt Esophagitis Hematemesis BOONE RAMSEY DO Feb 19, 2019 13:35
[2019-02-19 14:13] LABS: BUN/CREATININE RATIO 22; CALCIUM 7.8 MG/DL (8.5-10.1); CHLORIDE 108 MMOL/L (98-107); CREATININE SERUM 1.06 MG/DL (0.60-1.30); GFR ESTIMATED > 60; GLUCOSE 185 MG/DL (70-105); POTASSIUM 4.4 MMOL/L (3.6-5.0); SODIUM 135 MMOL/L (135-145)
[2019-02-19 14:23] LABS: CARBON DIOXIDE 8 MMOL/L (21-32)
[2019-02-19] MEDS ORDERED: MIDAZOLAM 5 MG/5 ML (VERSED) VIAL ONE (15:41)
[2019-02-19] MEDS ORDERED: proPOfol 200 MG/20 ML (DIPRIVAN) VIAL IV ONE ×2 (15:42→16:21)
--- NOTE | 2019-02-19 20:03 | OPERATIVE REPORT ---
DATE OF SERVICE: PREOPERATIVE DIAGNOSES: Coffee ground emesis, esophagitis, nausea and vomiting. POSTOPERATIVE DIAGNOSES: Coffee ground emesis, esophageal ulceration as well as some ulcers at the GE junction and retained food in the stomach. PROCEDURE: EGD with biopsy. SURGEON: Zaid Alonso DO. ELECTROMECHANICAL ASSEMBLY TECHNICIAN: None. ANESTHESIA: IV sedation by the STUDENT TEACHER. SPECIMEN: Biopsy from the GE junction and biopsy of the ulcerations of the esophagus. BLOOD LOSS: Scant. FLUIDS: Per anesthesia. POSTOPERATIVE CONDITION: Stable. INDICATION FOR PROCEDURE: The patient is a 58-year-old male who had abdominal pain and then nausea and vomiting, vomited up some coffee ground emesis. Stated he never had this before, had a CAT scan, which showed thick esophagitis, questionable neoplasm, needed a workup. FINDINGS: The patient had ulcerations in the lower third of the esophagus. The GE junction also looked ulcerated and erythematous and he had a lot of retained food particles and what looked like it may have been bloody in the upper portion of the stomach. Antrum and duodenum looked okay. PROCEDURE NOTE: After informed consent was obtained, the patient in his bed in the ICU, was administered IV sedation by the STUDENT TEACHER who then monitored his vitals the entire time, heart rate, blood pressure and pulse ox. Scope was inserted down the mouth through the esophagus and down the esophagus noted some fluid, started suctioning this up, pushed into the stomach. There was a lot of fluid in the upper portion of the stomach and the body, pushed down towards the antrum, saw a lot of what looked like black either old clot or black in food particles at the antrum, took a picture. Pushed into the duodenum, duodenum looked fine. Pulled back into the GE junction and the distal third of the esophagus, saw some ulcerations. The GE junction had some ulceration as well. Did a biopsy of the GE junction, then pulled back and tried to get a biopsy of the ulcers and esophagus, then tried for about 30 minutes to suction out all the fluid. It was just too much thickened particles and retained food, could not suction it all out. We will have to go back to look at this area again. At this point, then pulled the scope up the esophagus and out the mouth. The patient tolerated the procedure. He was recovered in the ICU bed. Job ID: [id number] DocumentID: [id number] Dictated Date: 02/19/2019 17:15:54 Estate Planner Date: 02/19/2019 20:02:38 Dictated By: ZAID ALONSO DO
[2019-02-19 21:02] LABS: BUN/CREATININE RATIO 17; CARBON DIOXIDE 14 MMOL/L (21-32); CHLORIDE 113 MMOL/L (98-107); CREATININE SERUM 1.06 MG/DL (0.60-1.30); GFR ESTIMATED > 60; GLUCOSE 168 MG/DL (70-105); POTASSIUM 4.1 MMOL/L (3.6-5.0); SODIUM 140 MMOL/L (135-145)
[2019-02-19] MEDS: PANTOPRAZOLE 40 MG (PROTONIX) VIAL IV SCH (21:18)
[2019-02-20] VITALS (21 sets, daily range): BP systolic 108–144; BP diastolic 56–80
[2019-02-20] MEDS: POTASSIUM CL 10MEQ/50ML IVPB 50 ML IV SCH ×5 (00:18→08:42)
[2019-02-20] MEDS: D5 1/2 NS 1000 ML IV SOLUTION 1,000 ML IV SCH ×3 (00:19→08:12)
[2019-02-20] MEDS: NS IV 1000 ML 1,000 ML IV SCH ×2 (02:32→03:51)
[2019-02-20] MEDS: 1/2 NS IV SOLUTION 1,000 ML IV SCH ×4 (02:32→22:31)
[2019-02-20 03:22] LABS: BASOPHILS % (AUTO) 0 % (0-10); EOSINOPHILS % (AUTO) 0 % (0-10); HEMATOCRIT 34 % (40-54); HEMOGLOBIN 11.6 G/DL (13.3-17.7); LYMPHOCYTES # (AUTO) 1.1 X 10^3 (1.0-4.0); LYMPHOCYTES % (AUTO) 8 % (12-44); MEAN CORPUSCULAR HEMOGLOBIN 30 PG (25-34); MEAN CORPUSCULAR HGB CONC 34 G/DL (32-36); MEAN CORPUSCULAR VOLUME 87 FL (80-99); MEAN PLATELET VOLUME 9.2 FL (7.4-10.4); MONOCYTES # (AUTO) 1.4 X 10^3 (0.0-1.0); MONOCYTES % (AUTO) 10 % (0-12); NEUTROPHILS # (AUTO) 11.9 X 10^3 (1.8-7.8); NEUTROPHILS % (AUTO) 83 % (42-75); PLATELET COUNT 253 10^3/uL (130-400); RED CELL DISTRIBUTION WIDTH 12.1 % (10.0-14.5); WHITE BLOOD COUNT 14.3 10^3/uL (4.3-11.0)
[2019-02-20 03:39] LABS: BUN/CREATININE RATIO 15; CALCIUM 7.9 MG/DL (8.5-10.1); CARBON DIOXIDE 17 MMOL/L (21-32); CHLORIDE 116 MMOL/L (98-107); CREATININE SERUM 0.93 MG/DL (0.60-1.30); GFR ESTIMATED > 60; GLUCOSE 142 MG/DL (70-105); PHOSPHORUS 1.7 MG/DL (2.3-4.7); POTASSIUM 3.7 MMOL/L (3.6-5.0); SODIUM 141 MMOL/L (135-145)
[2019-02-20 03:55] LABS: AMPHETAMINE SCREEN, URINE NEGATIVE (NEGATIVE); BARBITURATE SCREEN URINE NEGATIVE (NEGATIVE); BENZODIAZEPINES SCREEN URINE NEGATIVE (NEGATIVE); CANNABINOID SCREEN, URINE NEGATIVE (NEGATIVE); COCAINE SCREEN URINE NEGATIVE (NEGATIVE); METHADONE STAT NEGATIVE (NEGATIVE); METHAMPHETAMINE SCREEN URINE S NEGATIVE (NEGATIVE); OPIATE SCREEN URINE NEGATIVE (NEGATIVE); OXYCODONE STAT NEGATIVE (NEGATIVE); PROPOXYPHENE STAT NEGATIVE (NEGATIVE); TRICYCLIC ANTIDEPRESSANTS SCRE NEGATIVE (NEGATIVE)
[2019-02-20] MEDS ORDERED: KCL 20 MEQ TAB (K-DUR) PO SCH (06:00)
[2019-02-20] MEDS ORDERED: POTASSIUM CL 10MEQ/50ML IVPB 50 ML IV SCH (06:00)
[2019-02-20] MEDS ORDERED: MAGNESIUM 1 GM/100 ML IVPB 100 ML IV SCH (06:00)
--- NOTE | 2019-02-20 06:42 | Pulmonary Progress Note ---
Subjective Time Seen by a Provider: 06:41 Subjective/Events-last exam at bedside. Pt has no complaints. Sepsis Event Evaluation Height, Weight, BMI Height: 5'6.00" Weight: 139lbs. 1.0oz. 63.024102mw; BMI Method:Stated Focused Exam Lactate Level 02/19/19 07:25: Lactic Acid Level 1.84 Exam Exam Vital Signs Date Time Temp Pulse Resp B/P (MAP) Pulse Ox O2 Delivery O2 Flow Rate FiO2 02/20/19 06:00 100 14 124/69 (87) 96 Room Air 02/20/19 05:00 100 15 119/67 (84) 96 Room Air 02/20/19 04:00 100 14 113/65 (81) 95 Room Air 02/20/19 03:15 97 Room Air 02/20/19 03:15 100.0 Room Air 02/20/19 03:00 101 14 111/56 (74) 95 Room Air 02/20/19 02:00 105 12 121/66 (84) 96 Room Air 02/20/19 01:00 106 02/20/19 01:00 106 12 118/62 (80) 96 Room Air 02/20/19 00:00 108 16 108/60 (76) 95 Room Air 02/19/19 23:25 96 Room Air 02/19/19 23:25 99.6 Room Air 02/19/19 23:00 109 13 114/64 (81) 93 Room Air 02/19/19 22:00 112 18 118/61 (80) 94 Room Air 02/19/19 21:00 111 12 103/66 (78) 95 Room Air 02/19/19 20:00 120 23 132/77 (95) 98 Room Air 02/19/19 19:50 98 Room Air 02/19/19 19:20 98.7 Room Air 02/19/19 19:00 114 17 117/62 (80) 97 Room Air 02/19/19 19:00 114 02/19/19 18:00 112 16 112/63 (79) 100 Room Air 02/19/19 17:00 105 16 97/61 (73) 100 Room Air 02/19/19 16:00 134 28 128/86 (100) 100 Room Air 02/19/19 16:00 Room Air 02/19/19 16:00 98.5 02/19/19 15:00 129 35 142/78 (99) 99 Room Air 02/19/19 14:00 117 15 120/67 (84) 98 Room Air 02/19/19 13:00 118 14 98 Room Air 02/19/19 13:00 119 02/19/19 12:00 Room Air 02/19/19 12:00 120 12 107/63 (78) 99 Room Air 02/19/19 11:00 128 18 122/72 (89) 100 Room Air 02/19/19 10:37 Room Air 02/19/19 10:30 122 17 141/76 (97) 98 Room Air 02/19/19 10:19 128 02/19/19 09:31 97.9 122 18 140/63 (88) 96 Room Air 02/19/19 07:10 122 154/70 (98) 125 151/75 (100) 124 149/84 (105) I & O 02/20/19 07:00 Intake Total 44045 ml Output Total 5350 ml Balance 4653 ml Height & Weight Height: 5'6.00" Weight: 139lbs. 1.0oz. 63.216668zd; BMI Method:Stated General Appearance: No Apparent Distress, WD/WN HEENT: Moist Mucous Membranes; No Scleral Icterus (L), No Scleral Icterus (R) Neck: Normal Inspection, Supple; No JVD, No Thyromegaly Respiratory: Lungs Clear, No Accessory Muscle Use, No Respiratory Distress Cardiovascular: No JVD, No Murmur, Irregularly Irregular Capillary Refill: Less Than 3 Seconds Gastrointestinal: normal bowel sounds, soft, no pulsatile mass, guarding (epigastric tenderness), tenderness (epigastric) Extremity: Normal Capillary Refill, Non Tender, No Calf Tenderness Neurologic/Psychiatric: Alert, Oriented x3, Normal Mood/Affect; No Aphasia, No Facial Droop Skin: Normal Color, Warm/Dry Results Lab Laboratory Tests 02/19/19 05:22 02/19/19 09:20 02/19/19 10:29 02/19/19 13:40 02/19/19 20:35 02/20/19 03:15 Assessment/Plan Assessment/Plan Severe anion gap metabolic acidosis with ketosis - Improved -Continue insulin gtt await repeat labs -Continue DKA protocol -IVF Hypophos -Replace Fever -Check flu swab Esophagitis s/p EGD Hematemesis BOONE RAMSEY DO Feb 20, 2019 06:42
[2019-02-20] MEDS: PANTOPRAZOLE 40 MG (PROTONIX) VIAL IV SCH ×2 (07:57→20:56)
[2019-02-20] MEDS ORDERED: POTASSIUM PHOSPHATE INJ 30 MM in NS (IVPB) 250 ML IV ONE (08:00)
--- NOTE | 2019-02-20 09:01 | Diagnostic Imaging Report ---
EXAMINATION: Portable erect AP chest at 0334 hours. INDICATION: Dyspnea. FINDINGS: The heart size is within normal limits and stable when compared to 02/19/2019. In the interval since the prior study, however, a poorly defined area of increased density has developed in the left perihilar region. Most likely, this is due to pneumonia/atelectasis. The left lung is otherwise clear as is the right lung. There is no pleural effusion identified. The mediastinum is not widened. The osseous structures are intact. IMPRESSION: The appearance of the chest has worsened since the prior study as left perihilar pneumonia/atelectasis has developed. A followup exam should be considered for further evaluation. Dictated by: Dictated on workstation # [id number]
--- NOTE | 2019-02-20 10:14 | Progress Note - Hospitalist ---
VLADIMIR CRUZ,MED STUDENT 02/20/19 1014: Subjective HPI/CC On Admission Date Seen by Provider: Feb 20, 2019 Pt is a 58yoCM with a PMH of NIDDMII and HTN who presented to the ER with a CC of abdominal pain, nausea, and vomiting. He states his symptoms started yesterday. He flew from [place] to [place] to get a truck and on the way back he developed vomiting. His PCP told him to expect that from his Trulicity and had given him Zofran which he took and that helped. Shortly afterwards though his nausea returned and he has vomited multiple times since then causing him to seek evaluation in the ER. His vomit had a dark coffee ground appearance. He was found to have as severe metabolic acidosis on evaluation with high anion gap and admitted for further evaluation. He reported he also takes Segluromet for his diabetes but not insulin. He denies any ingestion of toxic alcohol or any unknown substances. Subjective/Events-last exam Patient states that he is feeling better and no longer has any nausea and vomiting, but still has epigastric pain that is now a 1/10. Patient was curious about what caused his symptoms and whether he was going to be "re-scoped today". Patient had no other comments, questions, or concerns at this time Focused Exam Lactate Level 02/19/19 07:25: Lactic Acid Level 1.84 Objective Exam Vital Signs Vital Signs Date Time Temp Pulse Resp B/P (MAP) Pulse Ox O2 Delivery O2 Flow Rate FiO2 02/20/19 09:00 93 14 126/70 (88) 95 Room Air 02/20/19 07:00 99.1 Capillary Refill : Less Than 3 Seconds General Appearance: No Apparent Distress, WD/WN Respiratory: Chest Non Tender, Lungs Clear, Normal Breath Sounds, No Accessory Muscle Use, No Respiratory Distress Cardiovascular: Regular Rate, Rhythm, No Edema, No Gallop, No JVD, No Murmur, Normal Peripheral Pulses Gastrointestinal: Normal Bowel Sounds, No Pulsatile Mass, Soft, Tenderness (mild epigastric pain ) Extremity: Normal Capillary Refill, Non Tender, No Calf Tenderness, No Pedal Edema Neurologic/Psychiatric: Alert, Oriented x3, No Motor/Sensory Deficits, Normal Mood/Affect Skin: Normal Color, Warm/Dry Results/Procedures Lab Laboratory Tests 02/19/19 10:29 02/19/19 13:40 02/19/19 20:35 02/20/19 03:15 Patient resulted labs reviewed. Imaging: Reviewed Imaging Report Assessment/Plan Assessment and Plan Assess & Plan/Chief Complaint euglycemic DKA - Resolved - transition off of insulin drip to levemir - monitor blood glucose q1hr - BMP - UA is patient appears to becoming acidotic again esophageal ulcer - surgery consult - EGD - PPI FENGIPPX - half NS @ 100 ml/hr - electrolytes monitor - NPO Clinical Quality Measures DVT/VTE Risk/Contraindication: Risk Factor Score Per Nursin RFS Level Per Nursing on Admit: 2=Moderate TESSA DOYLE MD 02/20/19 1506: Subjective HPI/CC On Admission Time Seen by Provider: 08:45 Assessment/Plan Assessment and Plan Assess & Plan/Chief Complaint Improving. Gap closed and acidosis now due to hyperchloremia. Will transition off insulin gtt to Levemir and sliding scale. A1c is 12.4% so likely will need insulin upon discharge. Plan to repeat EGD by Dr Alonso today. Maintain NPO status due to this. May need gastric emptying studying as an outpatient if nausea persists. Diagnosis/Problems Diagnosis/Problems (1) Diabetic ketoacidosis without coma associated with type 2 diabetes mellitus Status: Acute (2) Esophagitis Status: Acute (3) Metabolic acidosis, increased anion gap Status: Acute (4) Hematemesis Status: Acute Qualifiers: Qualified Codes: K92.0 - Hematemesis Supervisory-Addendum Brief Verification & Attestation Participated in pt care: history, MDM, physical Personally performed: exam, history, MDM, supervision of care Care discussed with: Medical Student Procedures: n/a Results interpretation: Verified all documentation Verification and Attestation of Medical Student E/M Service A medical student performed and documented this service in my presence. I reviewed and verified all information documented by the medical student and made modifications to such information, when appropriate. I personally performed the physical exam and medical decision making. Tessa Doyle, Feb 20, 2019,15:08 VLADIMIR CRUZ,MED STUDENT Feb 20, 2019 10:14 TESSA DOYLE MD Feb 20, 2019 15:06
--- NOTE | 2019-02-20 14:13 | Progress Note - Surgery ---
ROXI YOON,MED STUDENT 02/20/19 1413: Subjective Date Seen by a Provider: Feb 20, 2019 Time Seen by a Provider: 13:55 Subjective/Events-last exam Pt tolerating clear liquid diet without nausea, vomiting or hematemesis but continues to have no appetite. States he has some dull epigastric pain rated 1/10 made worse by the chicken broth he ate last night. Pt also states he has had a history of a feeling of food getting caught in his throat for the past four years which can cause him difficulty breathing. Accompanied by significant other at bedside. Review of Systems General: No Chills, No Night Sweats Gastrointestinal: Abdominal Pain (epigastric), Other (dysphagia beginning ~5 years ago); No: Nausea, Vomiting, Diarrhea, Constipation, Melena, Hematochezia Focused Exam Lactate Level 02/19/19 07:25: Lactic Acid Level 1.84 Objective Exam Vital Signs Date Time Temp Pulse Resp B/P (MAP) Pulse Ox O2 Delivery O2 Flow Rate FiO2 02/20/19 12:00 92 11 128/74 (92) 96 Room Air 02/20/19 12:00 97 Room Air 02/20/19 11:00 101 15 135/78 (97) 96 Room Air 02/20/19 10:00 97 14 128/72 (90) 93 Room Air 02/20/19 09:00 93 14 126/70 (88) 95 Room Air 02/20/19 08:00 101 20 124/73 (90) 96 Room Air 02/20/19 08:00 97 Room Air 02/20/19 07:00 98 02/20/19 07:00 99.1 02/20/19 07:00 95 13 117/66 (83) 95 Room Air 02/20/19 06:00 100 14 124/69 (87) 96 Room Air 02/20/19 05:00 100 15 119/67 (84) 96 Room Air 02/20/19 04:00 100 14 113/65 (81) 95 Room Air 02/20/19 03:15 97 Room Air 02/20/19 03:15 100.0 Room Air 02/20/19 03:00 101 14 111/56 (74) 95 Room Air 02/20/19 02:00 105 12 121/66 (84) 96 Room Air 02/20/19 01:00 106 02/20/19 01:00 106 12 118/62 (80) 96 Room Air 02/20/19 00:00 108 16 108/60 (76) 95 Room Air 02/19/19 23:25 96 Room Air 02/19/19 23:25 99.6 Room Air 02/19/19 23:00 109 13 114/64 (81) 93 Room Air 02/19/19 22:00 112 18 118/61 (80) 94 Room Air 02/19/19 21:00 111 12 103/66 (78) 95 Room Air 02/19/19 20:00 120 23 132/77 (95) 98 Room Air 02/19/19 19:50 98 Room Air 02/19/19 19:20 98.7 Room Air 02/19/19 19:00 114 17 117/62 (80) 97 Room Air 02/19/19 19:00 114 02/19/19 18:00 112 16 112/63 (79) 100 Room Air 02/19/19 17:00 105 16 97/61 (73) 100 Room Air 02/19/19 16:00 134 28 128/86 (100) 100 Room Air 02/19/19 16:00 Room Air 02/19/19 16:00 98.5 02/19/19 15:00 129 35 142/78 (99) 99 Room Air I & O 02/20/19 07:00 Intake Total 54520 ml Output Total 5350 ml Balance 4653 ml Capillary Refill : Less Than 3 Seconds General Appearance: No Apparent Distress, WD/WN HEENT: Moist Mucous Membranes; No Scleral Icterus (L), No Scleral Icterus (R) Neck: Normal Inspection, Supple; No JVD, No Thyromegaly Respiratory: Chest Non Tender, Lungs Clear, Normal Breath Sounds, No Accessory Muscle Use, No Respiratory Distress Cardiovascular: Regular Rate, Rhythm, No Edema, Normal Peripheral Pulses Peripheral Pulses: 2+ Dorsalis Pedis (R), 2+ Left Dors-Pedis (L) Gastrointestinal: soft, guarding (slight voluntary to deep epigastric palpation), tenderness (epigastric) Extremity: Normal Capillary Refill, Non Tender, No Calf Tenderness, No Pedal Edema Neurologic/Psychiatric: Alert, Oriented x3, No Motor/Sensory Deficits, Normal Mood/Affect Skin: Normal Color, Warm/Dry Lymphatic: No Adenopathy (Cervical, supra/infraclavicular, axillary ) Results Lab Laboratory Tests 02/19/19 14:11: Glucometer 199H 02/19/19 15:25: Glucometer 212H 02/19/19 16:37: Glucometer 204H 02/19/19 17:22: Glucometer 221H 02/19/19 18:30: Glucometer 203H 02/19/19 19:21: Glucometer 188H 02/19/19 20:35: Sodium Level 140, Potassium Level 4.1, Chloride Level 113H, Carbon Dioxide Level 14L, Anion Gap 13, Blood Urea Nitrogen 18, Creatinine 1.06, Estimat Glomerular Filtration Rate > 60, BUN/Creatinine Ratio 17, Glucose Level 168H, Calcium Level 8.0L 02/19/19 20:36: Glucometer 166H 02/19/19 21:22: Glucometer 191H 02/19/19 22:29: Glucometer 142H 02/19/19 23:29: Glucometer 135H 02/20/19 00:21: Glucometer 135H 02/20/19 01:26: Glucometer 125H 02/20/19 02:31: Glucometer 131H 02/20/19 03:15: White Blood Count 14.3H, Red Blood Count 3.91L, Hemoglobin 11.6L, Hematocrit 34L , Mean Corpuscular Volume 87, Mean Corpuscular Hemoglobin 30, Mean Corpuscular Hemoglobin Concent 34, Red Cell Distribution Width 12.1, Platelet Count 253, Mean Platelet Volume 9.2, Neutrophils (%) (Auto) 83H, Lymphocytes (%) (Auto) 8L, Monocytes (%) (Auto) 10, Eosinophils (%) (Auto) 0, Basophils (%) (Auto) 0, Neutrophils # (Auto) 11.9H, Lymphocytes # (Auto) 1.1, Monocytes # (Auto) 1.4H, Eosinophils # (Auto) 0.0, Basophils # (Auto) 0.0, Sodium Level 141, Potassium Level 3.7, Chloride Level 116H, Carbon Dioxide Level 17L, Anion Gap 8, Blood Urea Nitrogen 14, Creatinine 0.93, Estimat Glomerular Filtration Rate > 60, BUN/Creatinine Ratio 15, Glucose Level 142H, Calcium Level 7.9L, Phosphorus Level 1.7L, Magnesium Level 2.0, Beta-Hydroxybutyrate (Chem panel) 0.84H 02/20/19 03:29: Glucometer 139H 02/20/19 03:30: Urine Opiates Screen NEGATIVE, Urine Oxycodone Screen NEGATIVE, Urine Methadone Screen NEGATIVE, Urine Propoxyphene Screen NEGATIVE, Urine Barbiturates Screen NEGATIVE, Ur Tricyclic Antidepressants Screen NEGATIVE, Urine Phencyclidine Screen NEGATIVE, Urine Amphetamines Screen NEGATIVE, Urine Methamphetamines Screen NEGATIVE, Urine Benzodiazepines Screen NEGATIVE, Urine Cocaine Screen NEGATIVE, Urine Cannabinoids Screen NEGATIVE 02/20/19 04:40: Glucometer 180H 02/20/19 05:33: Glucometer 131H 02/20/19 06:45: Glucometer 144H 02/20/19 07:45: Glucometer 150H 02/20/19 08:42: Glucometer 143H 02/20/19 11:03: Glucometer 156H 02/20/19 12:28: Glucometer 134H 02/20/19 12:54: Glucometer 122H 02/20/19 14:03: Glucometer 98 Microbiology 02/20/19 Influenza Types A,B Antigen (RUIZ) - Final, Complete Assessment/Plan Assessment/Plan Assessment/Plan Abdominal Pain N/V with Coffee Ground Emesis Esophagitis - read by Radiologist on CT Metabolic Acidosis with High anion Gap DM II - not controlled Advanced diet to clear liquids. Continue IV fluids, anti-emetics, pain control and treatment for acidosis. EGD to be repeated due to bloody mucous covering majority of surfaces that could not be irrigated away. Due to several year history of dysphagia that occurs after oral phase, he may also benefit from a swallow study if EGD is not fruitful. Clinical Quality Measures DVT/VTE Risk/Contraindication: Risk Factor Score Per Nursin RFS Level Per Nursing on Admit: 2=Moderate ZAID ALONSO DO 02/20/19 1524: Subjective Time Seen by a Provider: 09:35 Subjective/Events-last exam Pt states he has no appetite. Has not vomited anything else since yesterday. Supervisory-Addendum Brief Verification & Attestation Participated in pt care: history, MDM, physical Personally performed: exam, history, MDM Care discussed with: Medical Student Procedures: n/a Verification and Attestation of Medical Student E/M Service A medical student performed and documented this service in my presence. I reviewed and verified all information documented by the medical student and made modifications to such information, when appropriate. I personally performed the physical exam and medical decision making. Zaid Alonso, Feb 20, 2019,15:24 ROXI YOON,MED STUDENT Feb 20, 2019 14:13 ZAID ALONSO DO Feb 20, 2019 15:24
[2019-02-20] MEDS: inSUlin ASPART (NovoLOG) 1 UNIT/0.01 ML (CHARGE PER UNIT) SC SCH ×2 (16:05→20:55)
[2019-02-20 16:44] LABS: BUN/CREATININE RATIO 8; CARBON DIOXIDE 21 MMOL/L (21-32); CHLORIDE 115 MMOL/L (98-107); CREATININE SERUM 0.84 MG/DL (0.60-1.30); GFR ESTIMATED > 60; GLUCOSE 104 MG/DL (70-105); POTASSIUM 3.5 MMOL/L (3.6-5.0); SODIUM 141 MMOL/L (135-145)
[2019-02-21] VITALS (8 sets, daily range): BP systolic 130–164; BP diastolic 71–88
--- NOTE | 2019-02-21 02:00 | NUR ---
Patient report given to Rand RN, patient transported to room 412 via . Personal possessions with patient and . Chart given to Rand.
--- NOTE | 2019-02-21 02:06 | NUR ---
Patient report received from Heaven MAO, patient transported from ICU to room 412 via WC. Personal possessions with patient. Will assumed care at this time
[2019-02-21] MEDS: inSUlin ASPART (NovoLOG) 1 UNIT/0.01 ML (CHARGE PER UNIT) SC SCH ×2 (05:23→10:56)
--- NOTE | 2019-02-21 07:09 | Progress Note - Hospitalist ---
VLADIMIR CRUZ,MED STUDENT 02/21/19 7:09am: Subjective HPI/CC On Admission Date Seen by Provider: Feb 21, 2019 Time Seen by Provider: 06:50 Pt is a 58yoCM with a PMH of NIDDMII and HTN who presented to the ER with a CC of abdominal pain, nausea, and vomiting. He states his symptoms started yesterday. He flew from [place] to [place] to get a truck and on the way back he developed vomiting. His PCP told him to expect that from his Trulicity and had given him Zofran which he took and that helped. Shortly afterwards though his nausea returned and he has vomited multiple times since then causing him to seek evaluation in the ER. His vomit had a dark coffee ground appearance. He was found to have as severe metabolic acidosis on evaluation with high anion gap and admitted for further evaluation. He reported he also takes Segluromet for his diabetes but not insulin. He denies any ingestion of toxic alcohol or any unk nown substances. Subjective/Events-last exam Patient says that he is feeling better and denies any nausea/vomiting, stomach pain, fever, chills, headache, chest pain, and SOB. He says he's hungry and thrist because we have not let him eat or drink because he's going to have an E GD done today. Focused Exam Lactate Level 02/19/19 07:25: Lactic Acid Level 1.84 Objective Exam Vital Signs Vital Signs Date Time Temp Pulse Resp B/P (MAP) Pulse Ox O2 Delivery O2 Flow Rate FiO2 02/21/19 04:25 99.4 88 18 130/71 (90) 95 Room Air Capillary Refill : Less Than 3 Seconds General Appearance: No Apparent Distress, WD/WN Respiratory: Chest Non Tender, Lungs Clear, Normal Breath Sounds, No Accessory Muscle Use, No Respiratory Distress, Accessory Muscle Use Cardiovascular: Regular Rate, Rhythm, No Edema, No Gallop, No JVD, No Murmur, Normal Peripheral Pulses Gastrointestinal: Normal Bowel Sounds, No Pulsatile Mass, Non Tender, Soft Extremity: Non Tender, No Calf Tenderness Neurologic/Psychiatric: Alert, Oriented x3, No Motor/Sensory Deficits, Normal Mood/Affect Skin: Normal Color, Warm/Dry Results/Procedures Lab Laboratory Tests 02/20/19 16:00 Patient resulted labs reviewed. Imaging: Reviewed Imaging Report Assessment/Plan Assessment and Plan Assess & Plan/Chief Complaint euglycemic DKA - Resolved - transition off of insulin drip to levemir - monitor blood glucose q1hr - BMP - UA is patient appears to becoming acidotic again esophageal ulcer - surgery consult - EGD - PPI FENGIPPX - NS @ 100 ml/hr - electrolytes monitor - NPO Clinical Quality Measures DVT/VTE Risk/Contraindication: Risk Factor Score Per Nursin RFS Level Per Nursing on Admit: 2=Moderate TESSA DOYLE MD 02/21/19 10:36am: Assessment/Plan Assessment and Plan Assess & Plan/Chief Complaint Plan for EGD today. Pending results of that may be able to DC home today. Will need to DC on Levemir and defer further treatment to his PCP in [place]. Diagnosis/Problems Diagnosis/Problems (1) Diabetic ketoacidosis without coma associated with type 2 diabetes mellitus Status: Acute (2) Esophagitis Status: Acute (3) Metabolic acidosis, increased anion gap Status: Acute (4) Hematemesis Status: Acute Qualifiers: Qualified Codes: K92.0 - Hematemesis (5) Nausea and vomiting Status: Acute Qualifiers: Qualified Codes: R11.2 - Nausea with vomiting, unspecified Supervisory-Addendum Brief Verification & Attestation Participated in pt care: history, MDM, physical Personally performed: exam, history, MDM, supervision of care Care discussed with: Medical Student Procedures: n/a Results interpretation: Verified all documentation Verification and Attestation of Medical Student E/M Service A medical student performed and documented this service in my presence. I reviewed and verified all information documented by the medical student and made modifications to such information, when appropriate. I personally performed the physical exam and medical decision making. Tessa Doyle, Feb 21, 2019,10:31 VLADIMIR CRUZ,MED STUDENT Feb 21, 2019 7:09 am TESSA DOYLE MD Feb 21, 2019 10:36 am
--- NOTE | 2019-02-21 07:28 | NUR ---
Pt blood sugar 79. Dr Alonso notified and ordered to give apple juice. Apple juice given to pt
[2019-02-21 07:54] LABS: BASOPHILS % (AUTO) 1 % (0-10); EOSINOPHILS # (AUTO) 0.1 10^3/uL (0.0-0.3); EOSINOPHILS % (AUTO) 2 % (0-10); HEMATOCRIT 32 % (40-54); HEMOGLOBIN 11.1 G/DL (13.3-17.7); LYMPHOCYTES # (AUTO) 1.9 X 10^3 (1.0-4.0); LYMPHOCYTES % (AUTO) 23 % (12-44); MEAN CORPUSCULAR HEMOGLOBIN 30 PG (25-34); MEAN CORPUSCULAR HGB CONC 34 G/DL (32-36); MEAN CORPUSCULAR VOLUME 87 FL (80-99); MONOCYTES # (AUTO) 0.8 X 10^3 (0.0-1.0); MONOCYTES % (AUTO) 10 % (0-12); NEUTROPHILS # (AUTO) 5.4 X 10^3 (1.8-7.8); NEUTROPHILS % (AUTO) 66 % (42-75); PLATELET COUNT 218 10^3/uL (130-400); RED CELL DISTRIBUTION WIDTH 12.4 % (10.0-14.5); WHITE BLOOD COUNT 8.2 10^3/uL (4.3-11.0)
[2019-02-21 08:08] LABS: BUN/CREATININE RATIO 10; CALCIUM 7.8 MG/DL (8.5-10.1); CARBON DIOXIDE 17 MMOL/L (21-32); CHLORIDE 113 MMOL/L (98-107); CREATININE SERUM 0.73 MG/DL (0.60-1.30); GFR ESTIMATED > 60; GLUCOSE 76 MG/DL (70-105); POTASSIUM 3.2 MMOL/L (3.6-5.0); SODIUM 140 MMOL/L (135-145)
[2019-02-21] MEDS: PANTOPRAZOLE 40 MG (PROTONIX) VIAL IV SCH (08:30)
[2019-02-21] MEDS: 1/2 NS IV SOLUTION 1,000 ML IV SCH (08:30)
--- NOTE | 2019-02-21 10:10 | NUR ---
NOTE THAT PT IS NPO AND 0600 FSBS WAS 79 -- NOC RN CALLED DR GE AND HE REQUESTED PT DRINK 2 CONTAINERS OF ORANGE JUICE -- NOC RN DID SO -- DR ORTEGA WAS ON FLOOR AND THIS RN ADVISED HER THAT 0900 LEVEMIR WAS BEING HELD --
--- NOTE | 2019-02-21 10:17 | Progress Note - Surgery ---
Subjective Time Seen by a Provider: 09:54 Subjective/Events-last exam Pt seen and examined states he is feeling better today and actually hungry. Denies abdominal pain and vomiting. Review of Systems General: No Chills, No Night Sweats Pulmonary: No Dyspnea, No Cough Cardiovascular: No: Chest Pain, Palpitations Gastrointestinal: No: Nausea, Vomiting Focused Exam Lactate Level 02/19/19 07:25: Lactic Acid Level 1.84 Objective Exam Vital Signs Date Time Temp Pulse Resp B/P (MAP) Pulse Ox O2 Delivery O2 Flow Rate FiO2 02/21/19 09:00 98 Room Air 02/21/19 08:00 98.2 94 18 161/83 (109) 96 Room Air 02/21/19 04:25 99.4 88 18 130/71 (90) 95 Room Air 02/21/19 02:10 98.4 84 18 144/83 (103) 96 Room Air 02/21/19 00:00 99.6 93 18 136/79 (98) 95 Room Air 02/20/19 19:30 98.6 97 16 144/75 (98) 97 Room Air 02/20/19 19:25 98 Room Air 02/20/19 19:00 98 02/20/19 18:00 96 19 142/80 (100) 97 Room Air 02/20/19 17:00 91 13 129/75 (93) 96 Room Air 02/20/19 16:00 92 15 134/78 (96) 96 Room Air 02/20/19 15:42 97 Room Air 02/20/19 15:00 98 17 133/71 (91) 96 Room Air 02/20/19 14:00 97 9 144/79 (100) 96 Room Air 02/20/19 13:00 96 02/20/19 13:00 96 15 128/74 (92) 96 Room Air 02/20/19 12:00 92 11 128/74 (92) 96 Room Air 02/20/19 12:00 97 Room Air 02/20/19 11:00 101 15 135/78 (97) 96 Room Air I & O 02/21/19 07:00 Intake Total 3780 ml Output Total 3525 ml Balance 255 ml Capillary Refill : Less Than 3 Seconds General Appearance: No Apparent Distress, WD/WN HEENT: PERRL/EOMI, Moist Mucous Membranes; No Scleral Icterus (L), No Scleral Icterus (R) Neck: No Thyromegaly Respiratory: Chest Non Tender, Lungs Clear, Normal Breath Sounds, No Accessory Muscle Use, No Respiratory Distress, Accessory Muscle Use Cardiovascular: Regular Rate, Rhythm, No Edema, No Murmur Peripheral Pulses: 2+ Dorsalis Pedis (R), 2+ Left Dors-Pedis (L) Gastrointestinal: non tender, soft, tenderness (epigastric very mild with palpation) Extremity: Non Tender, No Calf Tenderness Skin: Normal Color, Warm/Dry Results Lab Laboratory Tests 02/20/19 11:03: Glucometer 156H 02/20/19 12:28: Glucometer 134H 02/20/19 12:54: Glucometer 122H 02/20/19 14:03: Glucometer 98 02/20/19 14:58: Glucometer 138H 02/20/19 16:00: Sodium Level 141, Potassium Level 3.5L, Chloride Level 115H, Carbon Dioxide Level 21, Anion Gap 5, Blood Urea Nitrogen 7, Creatinine 0.84, Estimat Glomerular Filtration Rate > 60, BUN/Creatinine Ratio 8, Glucose Level 104, Calcium Level 8.0L 02/20/19 16:03: Glucometer 103 02/20/19 20:54: Glucometer 82 02/21/19 04:45: White Blood Count 8.2, Red Blood Count 3.70L, Hemoglobin 11.1L, Hematocrit 32L, Mean Corpuscular Volume 87, Mean Corpuscular Hemoglobin 30, Mean Corpuscular H emoglobin Concent 34, Red Cell Distribution Width 12.4, Platelet Count 218, Mean Platelet Volume 10.0, Neutrophils (%) (Auto) 66, Lymphocytes (%) (Auto) 23, Monocytes (%) (Auto) 10, Eosinophils (%) (Auto) 2, Basophils (%) (Auto) 1, Neutrophils # (Auto) 5.4, Lymphocytes # (Auto) 1.9, Monocytes # (Auto) 0.8, Eosinophils # (Auto) 0.1, Basophils # (Auto) 0.0, Sodium Level 140, Potassium Level 3.2L, Chloride Level 113H, Carbon Dioxide Level 17L, Anion Gap 10, Blood Urea Nitrogen 7, Creatinine 0.73, Estimat Glomerular Filtration Rate > 60, BUN/Creatinine Ratio 10, Glucose Level 76, Calcium Level 7.8L 02/21/19 05:13: Glucometer 79 Microbiology 02/20/19 Influenza Types A,B Antigen (RUIZ) - Final, Complete Assessment/Plan Assessment/Plan Assessment/Plan N/V with Coffee ground emesis - resolved Metabolic Acidosis -resolved Plan is to do EGD today to look at the rest of the stomach and reassess the lower esophagus. Discussed this with pt and he agrees. Afterwards will start regular diet and he can go home. Will probably need to go home on PPI and carafate. Clinical Quality Measures DVT/VTE Risk/Contraindication: Risk Factor Score Per Nursin RFS Level Per Nursing on Admit: 2=Moderate PATI GE DO Feb 21, 2019 10:17
[2019-02-21] MEDS ORDERED: INSU100V5 SQ (10:42)
[2019-02-21] MEDS ORDERED: PANT40TA2 PO (10:42)
[2019-02-21] MEDS ORDERED: proPOfol 200 MG/20 ML (DIPRIVAN) VIAL IV ONE (11:12)
[2019-02-21] MEDS ORDERED: MIDAZOLAM 2 MG/2 ML (VERSED) VIAL ONE (11:13)
[2019-02-21] MEDS ORDERED: LACTATED RINGERS 1,000 ML IV PRN (11:17)
[2019-02-21] MEDS ORDERED: LACTATED RINGERS 1,000 ML IV ONE (11:26)
--- NOTE | 2019-02-21 11:55 | NUR ---
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
--- NOTE | 2019-02-21 12:26 | Anesthesia-General Post-Op ---
MAC Patient Condition Mental Status/LOC: Same as Preop Cardiovascular: Satisfactory Nausea/Vomiting: Absent Respiratory: Satisfactory Pain: Controlled Complications: Absent Post Op Complications Complications None Follow Up Care/Instructions Patient Instructions None needed. Anesthesiology Discharge Order Discharge Order Patient is doing well, no complaints, stable vital signs, no apparent adverse anesthesia problems. No complications reported per nursing. BERTA JUNG CRNA Feb 21, 2019 12:26
--- NOTE | 2019-02-21 14:16 | NUR ---
NOTE THAT DR ORTEGA ORDERED LUNCH DIET FOR PT -- SHE VOICED IF PT TOLERATED IT HE MAY BE DISCHARGED HOME -- PT HAS EATEN AND VOICED NO N/V -- DR GE WAS CALLED AND MESSAGE LEFT FOR HIM -- THIS RN THEN TALKED TO DR ORTEGA AD SHE VOICED DR GE SAID IT WAS OK TO DISCHARGE PT -- THIS RN DID ASK THE PT WHAT PHARMACY HE USED HE VOICED [facility] -- HE WILL GET IT AT [place], [place] [facility] --ADVISED DR ORTEGA
[2019-02-21] MEDS ORDERED: SUCR1TAB36 PO (14:25)
--- NOTE | 2019-02-21 14:27 | Discharge Inst-Simple/Standard ---
Discharge Inst-Standard Reconcile Patient Problems Problems Reviewed?: Yes Patient Instructions/Follow Up Plan of Care/Instructions/FU: Please continue to take your medications as written. Please follow up with your PCP in [place] in the next week. Activity as Tolerated: Yes Discharge Diet: ADA Diet Return to The Hospital For: Vomiting blood, dark stools, high blood sugars, chest pain, shortness of breath, if you are feeling worse. TESSA ORTEGA MD Feb 21, 2019 2:27 pm
[2019-02-21] MEDS ORDERED: ONDA4TAB11 PO (14:28)
--- NOTE | 2019-02-21 14:37 | Discharge Summary ---
Diagnosis/Chief Complaint Date of Admission Feb 19, 2019 at 8:48 am Date of Discharge Discharge Date: Feb 21, 2019 Admission Diagnosis Euglycemic DKA Primary Care No,Local Physician Discharge Diagnosis (1) Diabetic ketoacidosis without coma associated with type 2 diabetes mellitus Status: Acute (2) Esophagitis Status: Acute (3) Metabolic acidosis, increased anion gap Status: Acute (4) Hematemesis Status: Acute (5) Nausea and vomiting Status: Acute Discharge Summary Procedures/Consulations Dr Bob Fajardo Discharge Physical Exam Allergies: Coded Allergies: No Known Drug Allergies (Verified , 02/19/19) Vitals & I&Os Vital Signs Date Time Temp Pulse Resp B/P (MAP) Pulse Ox O2 Delivery O2 Flow Rate FiO2 02/21/19 15:20 87 18 164/88 96 Room Air 02/21/19 12:00 97.9 02/21/19 11:40 10 General Appearance: No Apparent Distress, WD/WN Respiratory: Lungs Clear, No Respiratory Distress Cardiovascular: Regular Rate, Rhythm, No Murmur Neurologic/Psychiatric: Alert, Oriented x3 Hospital Course Patient is a 58-year-old male with past medical history of poorly controlled awy-vbxgjrp-prihgpyiv diabetes type II who presented to the emergency department due to nausea and vomiting. He was found to have severely elevated high anion gap metabolic acidosis and was admitted to the ICU. As an outpatient he is on an SL G2 inhibitor and there is high concern for euglycemic diabetic ketoacidosis. He was started on an insulin drip while workup for other etiologies of high anion gap metabolic acidosis were done. He was also given a one-time dose of fomepizole. His methanol and ethylene glycol levels came back negative. His acidosis resolved with insulin. He was transitioned off of the insulin drip to basal insulin. He will be continued on Levemir discharged to follow up with his primary care provider. Of note he was also having coffee- ground emesis and underwent endoscopy. This revealed esophagitis and esophageal ulcers. He was started on Protonix and Carafate upon discharge. He was discharged home in stable condition at his request. Labs (last 24 hrs) Microbiology 02/20/19 Influenza Types A,B Antigen ([facility]UI[facility]) - Final, Complete Patient resulted labs reviewed. Pending Labs Imaging: Reviewed Imaging Report Discussion & Recommendations Discharge Planning: >30 minutes discharge planning Discharge Home Medications: Active Scripts Active Ondansetron Odt (Ondansetron) 4 Mg Tab.rapdis 4 Mg PO Q8H Carafate (Sucralfate) 1 Gm Tablet 1 Gm PO ACHS Protonix (Pantoprazole Sodium) 40 Mg Tablet.dr 40 Mg PO DAILY Levemir (Insulin Determir) 1,000 Units/10 Ml Soln 5 Unit SQ DAILY@0900 Reported Rosuvastatin Calcium 10 Mg Tablet 10 Mg PO DAILY Levothyroxine Sodium 50 Mcg Tablet 50 Mcg PO DAILY Lisinopril 10 Mg Tablet 10 Mg PO DAILY Instructions to patient/family Please see electronic discharge instructions given to patient. Clinical Quality Measures DVT/VTE Risk/Contraindication: Risk Factor Score Per Nursin RFS Level Per Nursing on Admit: 2=Moderate Problem Qualifiers (1) Hematemesis: Nausea presence: with nausea Qualified Codes: K92.0 - Hematemesis (2) Nausea and vomiting: Vomiting type: unspecified Vomiting Intractability: non-intractable Qualified Codes: R11.2 - Nausea with vomiting, unspecified TESSA ORTEGA MD Feb 21, 2019 14:37
--- NOTE | 2019-02-21 20:21 | OPERATIVE REPORT ---
DATE OF SERVICE: PREOPERATIVE DIAGNOSES: Nausea, vomiting coffee-ground emesis, esophagitis, esophageal ulcers. POSTOPERATIVE DIAGNOSES: Nausea, vomiting, coffee-ground emesis, esophagitis, esophageal ulcers, questionable duodenal ulcers. SURGEON: Zaid Alonso DO DIRECTOR OF STRATEGIC INITIATIVES: None. ANESTHESIA: IV sedation by the PHARMACEUTICAL DEVELOPMENT TECHNICIAN. SPECIMEN: Biopsy from the duodenum, one biopsy from the antrum and one biopsy from the esophagus. BLOOD LOSS: Scant. FLUIDS: Per anesthesia. POSTOPERATIVE CONDITION: Stable. INDICATION FOR PROCEDURE: The patient is a 58-year-old male who had previously come in with nausea, vomiting coffee-ground emesis. He had metabolic acidosis. Esophagitis seen on CAT scan and a previous EGD performed, showed some inflammation at the GE junction and some ulcerations in the esophagus, but the upper portion of the stomach was not completely cleaned out, could not get all the solid material out, so we need a repeat. FINDINGS: The patient actually had what looked like possibly some duodenal ulcers, little bit of gastritis at the antrum, but the upper portion of the stomach we could not see before was totally clean. There did appear to be possibly more ulcers in the esophagus, but nothing new and nothing bleeding. The GE junction was still pretty raw. PROCEDURE NOTE: After informed consent was obtained, the patient was brought to the endoscopy suite and placed in the left lateral decubitus position. He was administered IV sedation by the PHARMACEUTICAL DEVELOPMENT TECHNICIAN who monitored his vitals the entire time, heart rate, blood pressure and pulse ox and the scope was inserted down the mouth through the esophagus into the stomach, pushed through the stomach through the antrum into the duodenum and duodenum looked like there were some ulcers, took a picture and then did a biopsy, pulled back into the antrum and there was a little bit of erythema and inflammation, so did a biopsy here at the antrum. Retroflexed the scope, small hiatal hernia. Pulled the scope into the GE junction, again it was inflamed and then pulled the scope up into the esophagus, there appeared to be even more ulcers than saw previous day. Did another biopsy here just to try to get a good specimen and then pushed the scope into the stomach, suctioned out all the air in the stomach and then pulled the scope up the esophagus out of the mouth. The patient tolerated the procedure. He was recovered in endoscopy suite. Job ID: [id number] DocumentID: [id number] Dictated Date: 02/21/2019 13:06:22 Business Investor Date: 02/21/2019 20:20:59 Dictated By: ZAID ALONSO DO
== END 2019-02-21 15:30 | disposition home or self-care (01) | DRG 380 ==
LOC: ER FS 05:21 → ICU 08:48 → 4TH 02-21 02:00
PROVIDERS: ADMIT Family Medicine; ATTEND Family Medicine
PROC: 0DB48ZX Excision of Esophagogastric Junction, Via Natural or Artificial Opening Endoscopic, Diagnostic (ICD-10-PCS; 2019-02-19)
PROC: 0DB38ZX Excision of Lower Esophagus, Via Natural or Artificial Opening Endoscopic, Diagnostic (ICD-10-PCS; principal; 2019-02-19 15:45)
PROC: 0DB98ZX Excision of Duodenum, Via Natural or Artificial Opening Endoscopic, Diagnostic (ICD-10-PCS; 2019-02-21)
PROC: 0DB78ZX Excision of Stomach, Pylorus, Via Natural or Artificial Opening Endoscopic, Diagnostic (ICD-10-PCS; 2019-02-21)
PROC: 0DB58ZX Excision of Esophagus, Via Natural or Artificial Opening Endoscopic, Diagnostic (ICD-10-PCS; 2019-02-21)
DX: K22.11 Ulcer of esophagus with bleeding (principal); E11.10 Type 2 diabetes mellitus with ketoacidosis without coma; K25.4 Chronic or unspecified gastric ulcer with hemorrhage; K26.4 Chronic or unspecified duodenal ulcer with hemorrhage; E87.2 Acidosis; T38.3X5A Adverse effect of insulin and oral hypoglycemic [antidiabetic] drugs, initial encounter; K21.0 Gastro-esophageal reflux disease with esophagitis; K92.0 Hematemesis; I10 Essential (primary) hypertension; E78.00 Pure hypercholesterolemia, unspecified; E87.5 Hyperkalemia; E87.8 Other disorders of electrolyte and fluid balance, not elsewhere classified; R50.9 Fever, unspecified; E83.39 Other disorders of phosphorus metabolism; Z79.84 Long term (current) use of oral hypoglycemic drugs
CPT/HCPCS: 36415; 36600; 71045; 74177; 80048; 80053; 80306; 80320; 80329; 81000; 82010; 82271; 82693; 82805; 82962; 83036; 83605; 83690; 83735; 84100; 84600; 85007; 85025; 85027; 87081; 87804; 93005; 96361; 96365; 96367; 96375